=== PATIENT | female | born 1960 | race Caucasian/White ===

== ENCOUNTER 2016-06-07 13:42 | Inpatient (IN) ==
[2016-06-07] MEDS ORDERED: 0.9 % Sodium Chloride 1,000 ML IVC ONE ×3 (13:50→17:24)
--- NOTE | 2016-06-07 13:54 | Emergency Department Note ---
Disposition Clinical Impression: Near syncope UTI (urinary tract infection) Qualifiers: Urinary tract infection type: site unspecified Hematuria presence: without hematuria Qualified Code(s): N39.0 - Urinary tract infection, site not specified Sepsis Qualifiers: Sepsis type: sepsis due to unspecified organism Qualified Code(s): A41.9 - Sepsis, unspecified organism Disposition: Admitted As Inpatient Condition: Fair Referrals: NO,PCP [Non-Partnered Physician] - Forms: ED Satisfaction Letter Time of Disposition: 18:03 Syncope HPI - General Chief Complaint: ED Dizziness Stated Complaint: Poss med reaction/ Lightheaded Time Seen by Provider: 06/07/16 13:45 Source: patient, EMS Mode of arrival: EMS Limitations: no limitations Nursing Notes Reviewed: Yes Vital Signs Reviewed: Yes - History of Present Illness HPI Narrative: 55-year-old female presents with near-syncope, patient was sitting at her chair at her desk at work, felt flushed and lightheaded and almost passed out. Her boss was at bedside and she describes lips are cyanotic, the patient describes 4 out of 10 chest pain radiating to her bilateral shoulder blades. Feeling like she was gasping for air. Patient had just received an injection for Depo- Medrol 80 mg at her primary care physician's office to her prior to this. It was unsure if this is a reaction to her steroids. Patient arrived by EMS Pt Subjective Complaint: felt faint, almost passed out Onset (ago): Just [employer] Duration: second(s) Prodromal Symptoms: none, chest pain, shortness of breath Witnessed: yes - by bystander Context: at rest Injuries Sustained Associated with Event: none Current Symptoms: none History: other (Recent steroid injection) Treatments prior to arrival: none Associated trauma secondary to event: No - Related Data Home Medications Medication Instructions Recorded Confirmed Escitalopram [Lexapro] 10 mg PO DAILY 12/17/14 06/07/16 Loratadine [Claritin] 10 mg PO DAILY 12/17/14 06/07/16 Bisoprolol/HCTZ 5/6.25 [Ziac 1 tab PO BID 06/07/16 06/07/16 5/6.25] Lovastatin [Lovastatin] 40 mg PO HS 06/07/16 06/07/16 Allergies Allergy/AdvReac Type Severity Reaction Status Date / Time Penicillins Allergy Hives Verified 12/17/14 16:17 Sulfa (Sulfonamide Allergy Hives Verified 05/30/16 10:24 Antibiotics) All systems ED: reviewed and negative except as stated. Constitutional: Denies: fever, chills, weakness Cardiovascular: Denies: chest pain, palpitations Respiratory: Denies: cough, dyspnea, wheezes Gastrointestinal: Denies: abdominal pain, nausea, vomiting Genitourinary: Denies: urgency, dysuria Musculoskeletal: Denies: back pain Neurological: Denies: headache, weakness Psychiatric: Denies: anxiety, depression Past Medical History - Past Medical History Attestation: Yes The following information was validated with the patient. 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: bilateral tubal ligation - Social History Smoking Status: Unknown if ever smoked Smokeless Tobacco Status: No Alcohol use: Reports: unknown Drug use: Reports: none Physical Exam Constitutional: alert and oriented, in NAD, vital signs reviewed and mild tachycardic Neck: normal inspection, neck is supple, trachea midline Resp: normal chest inspection, CTA bilaterally, no resp distress CV: tachycardic, no m/g/r GI: obese, normal inspection, Soft, NTND, BS present Back: normal inspection, no tenderness to palpation Neuro: A&O3, no gross motor or sensory deficits bilaterally MSK: normal inspection, bilateral UE and LE with normal ROM Psych: normal mood, normal affect Skin: No rashes, skin warm, dry, intact - General Limitations: no limitations General appearance: alert, in no apparent distress Course Course Narrative: 55-year-old female with chest pain and syncope at rest, will get troches lab work d-dimer given that she has a well score of 0, but she cannot meet per criteria because she is tachycardic, over 50, reassess, fluid bolus likely admit. - Reevaluation(s) Reevaluation #1: Pt was initially being evaluated for near syncope, concern for previous UTI ordered a urine analysis, this was added, patient and a white count however this was considered to be likely due to recent steroid use urinalysis is not markedly remarkable, however given concerns with near syncope, elevated white count and possible UTI, even though her urine culture was negative we will treat her with empiric antibiotics covering for possible UTI related infection, technically meets criteria for sepsis although we feel that near syncope is more important, we will give 30 mL per bolus, 3 L of fluid total have been ordered, a repeat lactate times, and broad-spectrum antibiotics with ceftriaxone. Sepsis consideration started after bloodwork reviewed at 15:40 as before met no SIRS criteria other than tachycardia no concern for infection prior to WBC and bandemia reviewed and equivocal urine, added Blood cutures at this time, Abx added within 3 hr window of sepsis presumed Pt also with elevated D-Dimer and Renal insufficiency GFR 35 unable to CTA will get Nuc Med V/Q and reassess. Time: 17:20 Reevaluation #2: Admitted to Medicine for UTI sepsis, very low probability for pulmonary embolism on nuclear medicine scan, patient currently stable has gotten 3 L fluid bolus, respiratory antibiotics, repeat lactate ordered, admitted to Dr Markham. Vital Signs Temperature 98.3 F 06/07/16 13:43 Pulse Rate 106 06/07/16 13:43 Respiratory Rate 18 06/07/16 13:43 Blood Pressure 89/66 06/07/16 13:43 O2 Sat by Pulse Oximetry 98 06/07/16 13:43 Temperature 98.3 F 06/07/16 13:43 Pulse Rate 103 06/07/16 17:38 Respiratory Rate 18 06/07/16 17:38 Blood Pressure 112/82 06/07/16 17:38 O2 Sat by Pulse Oximetry 97 06/07/16 17:38 Oxygen Delivery Oxygen Delivery Room Air Syncope - [facility] Narrative Medical decision making narrative: I examined this patient and my medical decision-making was reviewed with the GRIEVANCE MANAGER/PA/Advanced Practice Nurse/Resident Physician. I agree with the documented findings, disposition and treatment plan as described except to the extent set forth below. Patient presents today was seen by Dr. Winslow and myself , I agree with his evaluation and management plan, supervise care the patient's today. Patient had allergic reaction to antibiotics. She had a cystitis they started her on some steroids she was back at her office in about 2 hours after the injection she felt kind of lightheaded her boss that she looked terrible. Selected near syncopal episode. No injuries. No chest pain. Uncertain if this was allergic reaction or not. No rash no difficulty with breathing or swallowing. Benadryl workup on her reassess her. She may need admission. 1500 hrs.: Patient has elevated white count with a bandemia. She has not urinated yet, her d-dimer is elevated so were the VQ scan with her as her creatinine is elevated. Skin hydrated. And we will reassess. She is in agreement with this plan. Chest X-Ray 06/07/16 13:50 IMPRESSION: 1. No active pulmonary disease. D/ / Montrell Akers MD / Montrell Akers MD Interpreting Provider: Montrell Akers MD Pulmonary Perfusion Imaging 06/07/16 15:22 IMPRESSION: Very low probability ventilation perfusion lung scan with no evidence of pulmonary embolus. D/ / 06/07/2016 17:42:39 Celestino Mclaughlin MD / steven Interpreting Provider: Celestino Mclaughlin MD 1750 hrs. chest x-rays normal VQ scan is low probability for PE delay source of possible infection is her urine which she had had a UTI previously was started on ceftriaxone here and going to go ahead and admit her. She is in agreement impression is UTI, near syncope, rule out sepsis. Patient's agreement with plan. Patient's critical care time explained separately billable procedures 35 minutes. - Differential Diagnosis Likely: syncope due to orthostatic hypotension, vasovagal syncope, complete atrioventricular block, pulmonary embolism - Medical Records Medical records reviewed: Yes I reviewed the patient's medical records. - Lab Data Lab results reviewed: Yes I reviewed the patient's lab results. Result diagrams: 06/07/16 14:38 06/07/16 14:38 Lab Results 06/07/16 06/07/16 06/07/16 Range/Units 13:49 14:38 14:38 WBC 16.2 H (4.3-11.1) K/mcL RBC 4.35 (3.82-4.97) M/mcL Hgb 12.6 (11.5-15.4) g/dL Hct 40.2 (35.3-44.9) % MCV 92.4 (83.0-100.0) fL MCH 29.0 (28.0-33.3) pg MCHC 31.3 L (31.6-35.5) g/dL RDW 14.0 (11.5-14.5) % Plt Count 428 H (140-400) K/mcL MPV 8.6 L (9.4-12.4) fL Seg Neutrophils % 77.0 % Band Neutrophils % 11.0 H (0-4) % Lymphocytes % 10.0 % Monocytes % 1.0 % Eosinophils % 1.0 % Neutrophils # 14.3 H (1.6-8.9) K/mcL Lymphocytes # 1.6 (0.6-4.6) K/mcL Monocytes # 0.2 (0.0-1.3) K/mcL Eosinophils # 0.2 (0.0-0.6) K/mcL Platelet Estimate Normal (Normal) Immature Plt Fraction 1.7 (1.1-6.1) % D-Dimer (0-500) ng/mLFEU Sodium 139 (136-145) mEq/L Potassium 3.4 L (3.5-4.5) mEq/L Chloride 104 (98-109) mEq/L Carbon Dioxide 26 (19-29) mEq/L BUN 22 H (7-20) mg/dL Creatinine 1.54 H (0.57-1.11) mg/dL Est GFR ( Amer) 43 L (> 60) Est GFR (Non-Af Amer) 35 L (> 60) BUN/Creatinine Ratio 14 (6-26) Glucose 147 H (70-99) mg/dL POC Glucose 104 H (58-89) Calculated Osmolality 294 (280-300) Lactic Acid (0.5-2.2) mmol/L Calcium 7.8 L (8.6-10.8) mg/dL Troponin I (0-0.03) ng/mL Urine Color (Yellow) Urine Clarity (Clear) Urine pH (5.0-8.0) pH Units Ur Specific [place] (1.010-1.025) Urine Protein (Neg-Trace) mg/dL Urine Glucose (UA) (Normal) mg/dL Urine Ketones (Negative) mg/dL Urine Blood (Negative) Urine Nitrite (Negative) Urine Bilirubin (Negative) Urine Urobilinogen (Normal) mg/dL Ur Leukocyte Esterase (Negative) Urine Microscopic RBC (0-3) per hpf Urine Microscopic WBC (0-3) per hpf Ur Squamous Epith Cells (None-Few) per lpf Ur Renal Epithelial Cell (None-Few) per hpf Urine Bacteria (None-Few) per hpf Hyaline Casts (None-Few) per lpf Urine Mucus (Few) Ur Culture Indicated? (NO) 06/07/16 06/07/16 06/07/16 Range/Units 14:38 14:38 15:39 WBC (4.3-11.1) K/mcL RBC (3.82-4.97) M/mcL Hgb (11.5-15.4) g/dL Hct (35.3-44.9) % MCV (83.0-100.0) fL MCH (28.0-33.3) pg MCHC (31.6-35.5) g/dL RDW (11.5-14.5) % Plt Count (140-400) K/mcL MPV (9.4-12.4) fL Seg Neutrophils % % Band Neutrophils % (0-4) % Lymphocytes % % Monocytes % % Eosinophils % % Neutrophils # (1.6-8.9) K/mcL Lymphocytes # (0.6-4.6) K/mcL Monocytes # (0.0-1.3) K/mcL Eosinophils # (0.0-0.6) K/mcL Platelet Estimate (Normal) Immature Plt Fraction (1.1-6.1) % D-Dimer 2022 H (0-500) ng/mLFEU Sodium (136-145) mEq/L Potassium (3.5-4.5) mEq/L Chloride (98-109) mEq/L Carbon Dioxide (19-29) mEq/L BUN (7-20) mg/dL Creatinine (0.57-1.11) mg/dL Est GFR ( Amer) (> 60) Est GFR (Non-Af Amer) (> 60) BUN/Creatinine Ratio (6-26) Glucose (70-99) mg/dL POC Glucose (58-89) Calculated Osmolality (280-300) Lactic Acid 2.7 H (0.5-2.2) mmol/L Calcium (8.6-10.8) mg/dL Troponin I 0.02 (0-0.03) ng/mL Urine Color (Yellow) Urine Clarity (Clear) Urine pH (5.0-8.0) pH Units Ur Specific [place] (1.010-1.025) Urine Protein (Neg-Trace) mg/dL Urine Glucose (UA) (Normal) mg/dL Urine Ketones (Negative) mg/dL Urine Blood (Negative) Urine Nitrite (Negative) Urine Bilirubin (Negative) Urine Urobilinogen (Normal) mg/dL Ur Leukocyte Esterase (Negative) Urine Microscopic RBC (0-3) per hpf Urine Microscopic WBC (0-3) per hpf Ur Squamous Epith Cells (None-Few) per lpf Ur Renal Epithelial Cell (None-Few) per hpf Urine Bacteria (None-Few) per hpf Hyaline Casts (None-Few) per lpf Urine Mucus (Few) Ur Culture Indicated? (NO) 06/07/16 Range/Units 15:50 WBC (4.3-11.1) K/mcL RBC (3.82-4.97) M/mcL Hgb (11.5-15.4) g/dL Hct (35.3-44.9) % MCV (83.0-100.0) fL MCH (28.0-33.3) pg MCHC (31.6-35.5) g/dL RDW (11.5-14.5) % Plt Count (140-400) K/mcL MPV (9.4-12.4) fL Seg Neutrophils % % Band Neutrophils % (0-4) % Lymphocytes % % Monocytes % % Eosinophils % % Neutrophils # (1.6-8.9) K/mcL Lymphocytes # (0.6-4.6) K/mcL Monocytes # (0.0-1.3) K/mcL Eosinophils # (0.0-0.6) K/mcL Platelet Estimate (Normal) Immature Plt Fraction (1.1-6.1) % D-Dimer (0-500) ng/mLFEU Sodium (136-145) mEq/L Potassium (3.5-4.5) mEq/L Chloride (98-109) mEq/L Carbon Dioxide (19-29) mEq/L BUN (7-20) mg/dL Creatinine (0.57-1.11) mg/dL Est GFR ( Amer) (> 60) Est GFR (Non-Af Amer) (> 60) BUN/Creatinine Ratio (6-26) Glucose (70-99) mg/dL POC Glucose (58-89) Calculated Osmolality (280-300) Lactic Acid (0.5-2.2) mmol/L Calcium (8.6-10.8) mg/dL Troponin I (0-0.03) ng/mL Urine Color Yellow (Yellow) Urine Clarity Cloudy A (Clear) Urine pH 6.0 (5.0-8.0) pH Units Ur Specific [place] 1.017 (1.010-1.025) Urine Protein 30 H (Neg-Trace) mg/dL Urine Glucose (UA) Normal (Normal) mg/dL Urine Ketones Negative (Negative) mg/dL Urine Blood Negative (Negative) Urine Nitrite Negative (Negative) Urine Bilirubin Negative (Negative) Urine Urobilinogen Normal (Normal) mg/dL Ur Leukocyte Esterase Moderate H (Negative) Urine Microscopic RBC 3-5 H (0-3) per hpf Urine Microscopic WBC 5-15 H (0-3) per hpf Ur Squamous Epith Cells Many H (None-Few) per lpf Ur Renal Epithelial Cell Few (None-Few) per hpf Urine Bacteria None Seen (None-Few) per hpf Hyaline Casts Few (None-Few) per lpf Urine Mucus Few (Few) Ur Culture Indicated? YES A (NO) - Radiology Data Radiology results reviewed: Yes I reviewed the patient's radiology results. Chest X-Ray 06/07/16 13:50 IMPRESSION: 1. No active pulmonary disease. D/ / Montrell Akers MD / Montrell Akers MD Interpreting Provider: Montrell Akers MD - EKG Data EKG attestation: Yes I reviewed and interpreted this EKG. EKG shows normal: sinus rhythm Rate: tachycardia (10 6 bpm AR 151 0 75 QTC 411 Q wave in lead 3, inferior T wave in lead 3.) When compared to previous EKG there are: previous EKG unavailable - Core Measures AMI Core Measures Followed: No
[2016-06-07 14:46] LABS: Hematocrit 40.2 % (35.3-44.9); Hemoglobin 12.6 g/dL (11.5-15.4); Immature Platelets 1.7 % (1.1-6.1); Mean Corpuscular HGB Conc 31.3 g/dL (31.6-35.5); Mean Corpuscular Volume 92.4 fL (83.0-100.0); Mean Platelet Volume 8.6 fL (9.4-12.4); Monocytes # 0.2 K/mcL (0.0-1.3); Platelet Count 428 K/mcL (140-400); Red Blood Count 4.35 M/mcL (3.82-4.97)
[2016-06-07 15:02] LABS: Calcium 7.8 mg/dL (8.6-10.8); Potassium 3.4 mEq/L (3.5-4.5)
[2016-06-07 15:17] LABS: Eosinophils # 0.2 K/mcL (0.0-0.6); Lymphocytes # 1.6 K/mcL (0.6-4.6); Neutrophils # 14.3 K/mcL (1.6-8.9); Platelet Estimate Normal (Normal)
[2016-06-07 16:09] LABS: Bilirubin,Urine Negative (Negative); Blood,Urine Negative (Negative); Clarity,Urine Cloudy (Clear); Color,Urine Yellow (Yellow); Glucose,Urine (UA) Normal (Normal); Ketones,Urine Negative (Negative); Leukocyte Esterase,Urine Moderate (Negative); Nitrite,Urine Negative (Negative); Protein,Urine 30 mg/dL (Neg-Trace); Specific Gravity,Urine 1.017 (1.010-1.025); Urobilinogen,Urine Normal (Normal)
[2016-06-07 16:12] LABS: Bacteria,Urine None Seen per hpf (None-Few); Squamous Epithelial Cell,Urine Many per lpf (None-Few)
[2016-06-07 16:21] LABS: Hyaline Casts,Urine Few per lpf (None-Few); Mucus,Urine Few (Few); Renal Epithelial Cells,Urine Few per hpf (None-Few)
[2016-06-07] MEDS ORDERED: CefTRIAXone 1,000 MG VIAL IM ONE (17:20)
[2016-06-07] MEDS ORDERED: Naloxone 0.4 MG/ML INJ IVP PRN (23:55)
--- NOTE | 2016-06-07 23:55 | Internal Med History&Physical ---
Date of Encounter: 06/07/16 Time of Encounter: 23:55 Assessment and Plan (1) Sepsis Current visit: Yes Status: Acute Possibly secondary to urinary tract infection. Recently partially treated with Bactrim. Urinalysis is abnormal and urine cultures pending. Empirically treat with ceftriaxone. Lactate was elevated; pt had hypotension, which improved IV fluid bolus. Qualifiers: Sepsis type: sepsis due to unspecified organism Qualified Code(s): A41.9 - Sepsis, unspecified organism (2) UTI (urinary tract infection) Current visit: Yes Status: Acute Recently partially treated with the Bactrim. Bactrim was discontinued due to allergy. Urinalysis is abnormal and urine cultures pending. Emperically treat with ceftriaxone. Qualifiers: Urinary tract infection type: site unspecified Hematuria presence: without hematuria Qualified Code(s): N39.0 - Urinary tract infection, site not specified (3) Hypotension Current visit: Yes Status: Acute Likely due to sepsis. Improved.intravenous fluids. Monitor BP Qualifiers: Hypotension type: unspecified hypotension type Qualified Code(s): I95.9 - Hypotension, unspecified (4) Near syncope Current visit: Yes Status: Acute Likely secondary to sepsis/hypotension. Will check orthostatic vitals (5) Leucocytosis Current visit: Yes Status: Acute Likely secondary to UTI Versus recent systemic steroids. Monitor WBC count Qualifiers: Leukocytosis type: bandemia Qualified Code(s): D72.825 - Bandemia (6) Acute kidney injury Current visit: Yes Status: Acute Secondary to volume depletion/hypotension. Treated with IV fluids. Monitor renal function (7) Elevated d-dimer Current visit: Yes Status: Acute VQ scan is reported to be low probability for pulmonary embolism. Will get lower extremity venous doppler to exclude DVT (pt had recent hip replacement). Elevated d-dimer could be secondary to sepsis Internal Medicine - H&P: HPI Chief complaint: Low BP; presyncope Admitted From: Emergency Dept Plans for Post Hospital Care: Home History of present illness: Ms. Martin is a 55 year old female With Past medical history significant for hypertension, hyperlipidemia and right hip replacement in March 2016. She apparently had urinary symptoms over a week ago - she was started on Bactrim in urgent care. She apparently developed rash, suspected to be allergic reaction to Bactrim. She was treated with oral and parenteral steroids. She did not complete the course of antibiotics. She had been done at doctors office and was given Depo-Medrol 80 mg at her primary care physician's office. A short while after that, while she was in her office, she apparently felt dizzy, lightheaded, swimmy and felt like she was going to pass out. She reported some chest pressure and had low blood pressure. She denies shortness of breath, cough, fever, chills, abdominal pain, bowel problems. Per the note from [facility] department her blood pressure was 74/48 and 60/P. she was evaluated in the emergency department. She was noted to have blood pressure of 89/66 with pulse of 106 at presentation. She had abnormal urinalysis with positive leukocyte esterase. She had leukocytosis with bandemia. She was given intravenous fluid bolus and ceftriaxone. D-dimer was elevated but the VQ scan is negative. She is admitted to the hospitalist service for further management. Past Med Surg Social Fam HX - Past Medical History Medical history: hyperlipidemia, hypertension Psychiatric history: anxiety, depression - Past Surgical History Surgical History: cholecystectomy, hip replacement - Social History Smoking Status: Former smoker Smokeless Tobacco Status: No Alcohol use: none Drug use: none - Family History Father History Unknown: Yes Adopted: [place]: Lebron Cowan Age: 78 Family Member Ethnicity: Non- Living Status: Still Living Hx Family Cardiac Disorders: No Hx Family Respiratory Disorders: Yes (COPD) Hx Family Cancer: No Hx Family GI Disorders: No Hx Family Genitourinary Disorders: No Hx Family Endocrine Disorder: No Hx Family Musculoskeletal Disorders: No Hx Family Neuromuscular Disorders: No Hx Family Neurologic Disorders: No Hx Family HEENT Disorders: No Hx Family Autoimmune Disorders: No Hx Family Reproductive Disorders: No Hx Family Psychosocial Disorders: No Hx Family Medical Disorders: No Mother History Unknown: Yes Adopted: [place]: Yamilka Cowan Age: 72 Family Member Ethnicity: Non- Living Status: Still Living Hx Family Cardiac Disorders: No Hx Family Respiratory Disorders: No Hx Family Cancer: No Hx Family GI Disorders: Yes (GI bleed) Hx Family Genitourinary Disorders: No Hx Family Endocrine Disorder: No Hx Family Musculoskeletal Disorders: No Hx Family Neuromuscular Disorders: No Hx Family Neurologic Disorders: No Hx Family HEENT Disorders: No Hx Family Autoimmune Disorders: Yes (DM 2) Hx Family Reproductive Disorders: No Hx Family Psychosocial Disorders: No Hx Family Medical Disorders: Yes (CVA, Kidney disease) Internal Medicine - H&P: Meds Escitalopram [Lexapro] 10 mg PO DAILY 12/17/14 [History] Loratadine [Claritin] 10 mg PO DAILY 12/17/14 [History] Bisoprolol/HCTZ 5/6.25 [Ziac 5/6.25] 1 tab PO BID 06/07/16 [History] Lovastatin [Lovastatin] 40 mg PO HS 06/07/16 [History] Allergies Penicillins Allergy (Verified 12/17/14 16:17) Hives Sulfa (Sulfonamide Antibiotics) Allergy (Verified 05/30/16 10:24) Hives All Systems PM: A 10-system review of systems was performed and is negative for pertinent findings except as documented above in the HPI. - Constitutional Vitals: Temp Pulse Resp BP Pulse Ox 98.2 F 95 16 100/66 95 06/07/16 19:47 06/07/16 19:47 06/07/16 19:47 06/07/16 19:47 06/07/16 19:47 Exam: General: Not in acute distress at the time of my evaluation HEENT: Oral mucosa is moist. No conjunctival palor or scleral icterus Neck: No obvious neck swellings Lungs: Clear to auscultation Cardiac: Regular rate and rhythm. No significant murmurs Abdomen: Soft, non tender. Bowel sounds present Genitourinary: No love catheter Neurological: Alert and oriented. No gross localizing deficits Psych: Not aggressive or agitated Extremities: no significant leg edema Skin: No generalized rash Internal Med - H&P Results - Labs CBC & Chem 7: 06/07/16 14:38 06/07/16 14:38 - EKG Data -: EKG Interpreted by Myself EKG shows normal: sinus rhythm Rate: tachycardia - Impressions ITS Impressions Chest X-Ray 06/07/16 13:50 IMPRESSION: 1. No active pulmonary disease. D/ / Montrell Akers MD / Montrell Akers MD Interpreting Provider: Montrell Akers MD Pulmonary Perfusion Imaging 06/07/16 15:22 IMPRESSION: Very low probability ventilation perfusion lung scan with no evidence of pulmonary embolus. D/ / 06/07/2016 17:42:39 Celestino Mclaughlin MD / steven Interpreting Provider: Celestino Mclaughlin MD
[2016-06-08] MEDS: 0.9 % Sodium Chloride 1,000 ML IVC SCH ×2 (00:33→11:45)
[2016-06-08 04:24] LABS: Basophils # 0.1 K/mcL (0.0-0.2); Basophils % 0.5 %; Eosinophils # 0.3 K/mcL (0.0-0.6); Eosinophils % 2.2 %; Hematocrit 35.5 % (35.3-44.9); Hemoglobin 11.2 g/dL (11.5-15.4); Immature Granulocytes % 5.4 % (0-4); Lymphocytes # 2.3 K/mcL (0.6-4.6); Lymphocytes % 18.1 %; Mean Corpuscular HGB Conc 31.5 g/dL (31.6-35.5); Mean Corpuscular Hemoglobin 28.4 pg (28.0-33.3); Mean Corpuscular Volume 89.9 fL (83.0-100.0); Mean Platelet Volume 8.6 fL (9.4-12.4); Monocytes # 0.6 K/mcL (0.0-1.3); Monocytes % 4.9 %; Neutrophils # 8.6 K/mcL (1.6-8.9); Platelet Count 277 K/mcL (140-400); Red Blood Count 3.95 M/mcL (3.82-4.97); Red Cell Distribution Width 14.4 % (11.5-14.5); Segmented Neutrophils % 68.9 %
[2016-06-08 04:55] LABS: Hemoglobin A1C 5.5 %
[2016-06-08 04:57] LABS: Calcium 7.2 mg/dL (8.6-10.8); Chol/HDL Ratio 5.6 (0-4.9); Potassium 3.2 mEq/L (3.5-4.5)
[2016-06-08 05:21] LABS: Platelet Estimate Normal (Normal)
[2016-06-08] MEDS: *HR* Heparin 5,000 UNIT/ML VIAL SQ SCH ×3 (05:36→20:56)
[2016-06-08] MEDS ORDERED: Magnesium Sulfate 4 GM in D5% in Water 100 ML IVPB ONE (06:44)
[2016-06-08] MEDS: Loratadine 10 MG TABLET PO SCH (08:06)
[2016-06-08] MEDS ORDERED: *HR* Promethazine 25 MG/ML VIAL IVP PRN (08:33)
[2016-06-08] MEDS ORDERED: *HR* Morphine 2 MG/ML SYRINGE IVP PRN (08:33)
[2016-06-08] MEDS ORDERED: Ondansetron 4 MG/2 ML VIAL IVP PRN (08:33)
[2016-06-08] MEDS ORDERED: Acetaminophen 325 MG TABLET PO PRN (08:33)
[2016-06-08] MEDS: *HR* HYDROcodone/Acet 5/325 mg TABLET PO PRN ×2 (14:28→21:30)
--- NOTE | 2016-06-08 17:21 | Electrocardiograph Report ---
[address] [place], [place] [address] Test Date: 2016-06-07 Pat Name: Usha Martin Department: 104 Room: 3B Gender: F Certified Nuclear Medicine Technologist: ADRIANNE : 1960 Requested By: Davin Winslow Order Number: [id number] Reading MD: Abe Sloan MD Measurements Intervals [place] Rate: 106 P: 27 VA: 151 QRS: 32 QRSD: 75 T: 19 QT: 349 QTc: 411 Interpretive Statements SINUS TACHYCARDIA Electronically Signed On 06-08-2016 17:19:39 EDT by Abe Sloan MD
--- NOTE | 2016-06-08 18:27 | Internal Med Progress Note ---
Date of Encounter: 06/08/16 Time of Encounter: 14:00 - Assessment and plan (1) Hypertension Current Visit: Yes Status: Chronic Assessment and plan: Hypotension resolved and then the patient became hypertensive and her home medication bisoprolol has been held given that his combined with HCTZ. We will start her on metoprolol and monitor. Qualifiers: Hypertension type: essential hypertension Qualified Code(s): I10 - Essential (primary) hypertension (2) Near syncope Current Visit: Yes Status: Resolved Assessment and plan: Patient is now asymptomatic and ambulatory about her room without lightheadedness or dizziness. Likely secondary to sepsis that is resolving. Possible discharge tomorrow pending clinical outcomes. (3) UTI (urinary tract infection) Current Visit: Yes Status: Acute Assessment and plan: Continue ceftriaxone, culture pending. Prior to admission, patient likely had an allergic reaction to Bactrim, will avoid. Qualifiers: Urinary tract infection type: site unspecified Hematuria presence: without hematuria Qualified Code(s): N39.0 - Urinary tract infection, site not specified (4) Sepsis Current Visit: Yes Status: Resolved Assessment and plan: Sepsis is resolving. Leukocytosis trending down. Patient no longer hypotensive. Heart rate stable and slightly tachycardic at times however the patient has agitated because she wants to go home. Lactic acid normal. Qualifiers: Sepsis type: sepsis due to unspecified organism Qualified Code(s): A41.9 - Sepsis, unspecified organism (5) Hypotension Current Visit: Yes Status: Resolved Qualifiers: Hypotension type: unspecified hypotension type Qualified Code(s): I95.9 - Hypotension, unspecified (6) Leucocytosis Current Visit: Yes Status: Acute Assessment and plan: Trending down, continue ceftriaxone. Qualifiers: Leukocytosis type: bandemia Qualified Code(s): D72.825 - Bandemia (7) Acute kidney injury Current Visit: Yes Status: Acute Assessment and plan: Improving, we will continue to trend. Continue IV fluids. (8) Elevated d-dimer Current Visit: Yes Status: Ruled-out Assessment and plan: VQ scan negative for PE. Lower extremity Doppler negative for DVT ITS Impressions Pulmonary Perfusion Imaging 06/07/16 15:22 IMPRESSION: Very low probability ventilation perfusion lung scan with no evidence of pulmonary embolus. D/ /07/2016 17:42:39 Celestino Mclaughlin MD / bcarter Interpreting Provider: Celestino Mclaughlin MD 06/08/16 14:10 - Vascular Preliminary by Bravo Fields [facility] Num: [id number] : 1960 Patient Age: 55 Preliminary report for bilateral lower extremity venous duplex is negative for DVT and SVT. (9) Hypokalemia Current Visit: Yes Status: Acute Assessment and plan: Repleting, will trend. Also hypomagnesemic (10) Hypomagnesemia Current Visit: Yes Status: Acute Assessment and plan: Repleting, will check in the morning - Subjective Interval history: Patient seen and examined. On examination, patient is sitting upright in bed. Patient alert and oriented 3 and currently denies pain or shortness of breath. She denies dysuria. She states she is feeling much better and wants to go home. - Constitutional Vitals: Temp Pulse Resp BP Pulse Ox 98.0 F 104 16 148/83 95 06/08/16 15:06 06/08/16 15:06 06/08/16 15:06 06/08/16 15:06 06/08/16 15:06 General appearance: Present: A&O X 3, pleasant, no acute distress, answers questions appropriately - Head Head exam: Present: atraumatic, normocephalic - Eye Eye exam: Present: PERRL, conjuntiva pink, sclera anicteric Pupils: Present: PERRL - Neck Neck exam general surgery: Present: supple, trachea midline. Absent: lymphadenopathy - Respiratory Respiratory exam: Present: CTAB. Absent: accessory muscle use, rales, respiratory distress, rhonchi, wheezes - Cardiovascular Cardiovascular exam: Present: RRR, +S1, +S2. Absent: diastolic murmur, gallop, rubs, systolic murmur - GI/Abdominal GI/Abdominal exam: Present: normal bowel sounds, soft, no peritoneal signs. Absent: distended, tenderness - Extremities Exam Extremities exam: Present: warm, radial pulses palpable and symetrical. Absent : calf tenderness, cyanotic, pedal edema - Expanded Lower Extremities Exam Hip exam: Present: tenderness (Status post hip replacement 9 weeks ago) Neuro vascular tendon exam: Present: no vascular compromise - Neurological Exam Neurological exam: Present: alert, CN II-XII intact, oriented X3, no focal deficits, strengths equal and symetr throughout. Absent: pronater drift, facial droop, speech deficit - Skin Skin exam: Present: dry, intact, normal color, warm Internal Medicine: Result - Labs CBC & Chem 7: 06/08/16 03:48 06/08/16 03:48 Labs: Short CBC 06/08/16 Range/Units 03:48 WBC 12.5 H (4.3-11.1) K/mcL Hgb 11.2 L (11.5-15.4) g/dL Hct 35.5 (35.3-44.9) % Plt Count 277 (140-400) K/mcL Neutrophils # 8.6 (1.6-8.9) K/mcL BMP 06/08/16 03:48 Sodium 139 Potassium 3.2 L Chloride 108 Carbon Dioxide 23 BUN 19 Creatinine 1.17 H Glucose 92 Calcium 7.2 L Cardiac Enzymes 06/08/16 Range/Units 03:48 Troponin I 0.02 (0-0.03) ng/mL - ABG Interpretation ABG results: PT/INR, D-dimer D-Dimer 2023 ng/mLFEU (0-500) H 06/07/16 14:38 Consult Discharge Plan - Plan Referrals: Tone Gomez DO [Primary Care Provider] -
[2016-06-08] MEDS: Lactobacillus 1 EACH CAP.SPRINK PO SCH (20:56)
[2016-06-09] MEDS: 0.9 % Sodium Chloride 1,000 ML IVC SCH ×2 (00:26→05:07)
[2016-06-09 03:52] LABS: Basophils % 0.5 %; Eosinophils # 0.3 K/mcL (0.0-0.6); Eosinophils % 3.2 %; Hemoglobin 11.5 g/dL (11.5-15.4); Lymphocytes # 2.4 K/mcL (0.6-4.6); Lymphocytes % 30.4 %; Mean Corpuscular HGB Conc 31.9 g/dL (31.6-35.5); Mean Corpuscular Hemoglobin 29.1 pg (28.0-33.3); Mean Corpuscular Volume 91.1 fL (83.0-100.0); Monocytes # 0.5 K/mcL (0.0-1.3); Neutrophils # 4.3 K/mcL (1.6-8.9); Platelet Count 208 K/mcL (140-400); Red Blood Count 3.95 M/mcL (3.82-4.97); Red Cell Distribution Width 14.5 % (11.5-14.5); Segmented Neutrophils % 54.9 %
[2016-06-09 04:15] LABS: BUN/Creatinine Ratio 15 (6-26); Blood Urea Nitrogen 13 mg/dL (7-20); Carbon Dioxide 24 mEq/L (19-29); Chloride 111 mEq/L (98-109); Glucose 101 mg/dL (70-99); Magnesium 1.7 mg/dL (1.6-2.6); Osmolality,Calculated 294 (280-300); Sodium 142 mEq/L (136-145); eGFR For African Americans > 60 (> 60); eGFR For Non-African Americans > 60 (> 60)
[2016-06-09 04:24] LABS: Calcium 8.3 mg/dL (8.6-10.8)
[2016-06-09] MEDS: *HR* Heparin 5,000 UNIT/ML VIAL SQ SCH (04:57)
--- NOTE | 2016-06-09 07:01 | Venous Imaging Report ---
LE Venous Duplex Patient Name:Usha Martin Order Number:[id number] Procedure Date:06/08/2016 Date:1960Age:55 yrs Gender:Female Location:[facility] Room #: 3B34 Special Education Resource Teacher:Bravo Fields RN Referring MD:Gayla Patrick MD board certified behavioral analyst:Tone Gomez DO Reading MD:David Barker MD Primary Indications:Elevated D-Dimer Secondary Indications: Risk Factors Yes/No Smoking Current No Anticoagulants No Previous Vascular Surgery No Hx of DVT No Hx of Chemotherapy No Trauma to Veins No Recent Surgery No Hx of Superficial Phlebitis No [place] Filter No Impressions: Normal bilateral lower extremity deep and superficial venous exam. Recommendations: Test completed on 06/08/2016 at 1:00:00 pm. Findings Venous Duplex Results: Right: Venous imaging of the lower extremity reveals full patency and normal vessel compressibility of the right distal iliac, right common femoral, right superficial femoral, right popliteal, right posterior tibial, right peroneal, right great saphenous and right lesser saphenous. Doppler signals in the evaluated veins were normal. Left: Venous imaging of the lower extremity reveals full patency and normal vessel compressibility of the left distal iliac, left common femoral, left superficial femoral, left popliteal, left posterior tibial, left peroneal, left great saphenous and left lesser saphenous. Doppler signals in the evaluated veins were normal. Prior Study: No prior study available for comparison. Lower Extremity Venous Duplex Side Vein Compress Spontaneous Flow Augment Diameter (cm) Depth (cm) Right Distal Iliac Normal Yes Phasic Yes Right Common Femoral Normal Yes Phasic Yes Right Superficial Femoral Normal Yes Phasic Yes Right Popliteal Normal Yes Phasic Yes Right Posterior Tibial Normal Yes Phasic Yes Right Peroneal Normal Yes Phasic Yes Right Great Saphenous Normal Yes Phasic Yes Right Lesser Saphenous Normal Yes Phasic Yes Left Distal Iliac Normal Yes Phasic Yes Left Common Femoral Normal Yes Phasic Yes Left Superficial Femoral Normal Yes Phasic Yes Left Popliteal Normal Yes Phasic Yes Left Posterior Tibial Normal Yes Phasic Yes Left Peroneal Normal Yes Phasic Yes Left Great Saphenous Normal Yes Phasic Yes Left Lesser Saphenous Normal Yes Phasic Yes Updated by David Barker MD on 06/09/2016 6:55:06 AM electronically signed on 06/09/2016 6:55:26 AM with status of Final
[2016-06-09] MEDS: Loratadine 10 MG TABLET PO SCH (09:39)
[2016-06-09] MEDS: Lactobacillus 1 EACH CAP.SPRINK PO SCH (09:39)
[2016-06-09 11:10] VITALS: BP 156/97
--- NOTE | 2016-06-09 11:19 | Discharge Summary ---
Date of Encounter: 06/09/16 Time of Encounter: 10:00 - Discharge Diagnosis (1) Hypertension Priority: Secondary Status: Chronic Comments: Hypotension resolved and then the patient became hypertensive and her home medication of bisoprolol was not an option, so she was given metoprolol while admitted- borderline hypertensive at time of discharge- will have her resume her home medications and have her followup outpatient. (2) Near syncope Priority: Primary Status: Resolved Comments: Patient aimed asymptomatic and ambulatory about her room without lightheadedness or dizziness throughout this admission. Was likely secondary to sepsis that resolved. (3) UTI (urinary tract infection) Priority: Primary Status: Acute Comments: Patient improved clinically and her sepsis resolved while on ceftriaxone. Urine culture was grossly mixed and unable to be interpreted to she will be sent home on Cefdinir. Bactrim added to her allergy list. Qualifiers: Urinary tract infection type: site unspecified Hematuria presence: without hematuria Qualified Code(s): N39.0 - Urinary tract infection, site not specified (4) Sepsis Priority: Primary Status: Resolved Qualifiers: Sepsis type: sepsis due to unspecified organism Qualified Code(s): A41.9 - Sepsis, unspecified organism (5) Hypotension Priority: Primary Status: Resolved Qualifiers: Hypotension type: unspecified hypotension type Qualified Code(s): I95.9 - Hypotension, unspecified (6) Leucocytosis Priority: Primary Status: Resolved (7) Acute kidney injury Priority: Primary Status: Resolved (8) Elevated d-dimer Priority: Primary Status: Ruled-out Comments: VQ scan negative for PE. Lower extremity Doppler negative for DVT ITS Impressions Pulmonary Perfusion Imaging 06/07/16 15:22 IMPRESSION: Very low probability ventilation perfusion lung scan with no evidence of pulmonary embolus. D/ / 06/07/2016 17:42:39 Celestino Mclaughlin MD / [email or web address] Interpreting Provider: Celestino Mclaughlin MD 06/08/16 14:10 - Vascular Preliminary by Bravo Fields [employer] Num: [id number] : 1960 Patient Age: 55 Preliminary report for bilateral lower extremity venous duplex is negative for DVT and SVT. (9) Hypokalemia Priority: Primary Status: Resolved (10) Hypomagnesemia Priority: Primary Status: Resolved - Discharge Medications Prescriptions: HYDROcodone/Acet 5/325 mg [[place] 5-325 mg] 1 tab PO Q6HR PRN #12 tablet PRN Reason: Pain Cefdinir [Omnicef] 300 mg PO BID #14 capsule Home Medications: Escitalopram [Lexapro] 10 mg PO DAILY 12/17/14 [History] Loratadine [Claritin] 10 mg PO DAILY 12/17/14 [History] Bisoprolol/HCTZ 5/6.25 [Ziac 5/6.25] 1 tab PO BID 06/07/16 [History] Lovastatin 40 mg PO HS 06/07/16 [History] Cefdinir [Omnicef] 300 mg PO BID #14 capsule 06/09/16 [Rx] HYDROcodone/Acet 5/325 mg [[place] 5-325 mg] 1 tab PO Q6HR PRN #12 tablet [Rx] Allergies/Adverse Reactions: Allergies Penicillins Allergy (Verified 12/17/14 16:17) Hives Sulfa (Sulfonamide Antibiotics) Allergy (Verified 05/30/16 10:24) Hives Procedures/tests Complete & Pending: Procedures Performed prior 72 hours Category Date Time Status Venous Doppler [EV venous imaging LE BI] Routine Y 06/08/16 00:26 Completed Date of admission: 06/07/16 23:55 Primary care physician: Tone Gomez DO Discharging clinician: Leonor Coombs Anticipated date of discharge: 06/09/16 - Patient Status Disposition: Home, Self-Care Condition: Good Functional capacity at discharge: independent ambulation Overall status at discharge: patient is back to baseline - Discharge Instructions Follow Up With: Tone Gomez DO [Primary Care Provider] - 06/15/16 2:15 pm Additional Instructions: Follow-up with primary care provider as scheduled - Diet and Activity Activity: increase activity as tolerated Diet: low fat, low cholesterol, low salt diet Hospital course: Ms. Martin is a 55 year old female with past medical history of hypertension, hyperlipidemia, right hip replacement in March of this year, status post cholecystectomy, former tobacco abuse. Patient presented to the emergency department chief complaint low blood pressure and presyncopal episode. On the week prior to presentation, patient had urinary symptoms and was started on Bactrim after visiting in urgent care. After 3 doses, she developed a rash and was taken off that medication for suspected allergic reaction. No further antibiotics were given. She was seen in her doctor's office who gave her a injection of steroids and shortly after the injection, patient felt dizzy, lightheaded and felt like she was going to pass out. No syncope. Patient also endorsed chest pressure and low blood pressure. Patient denies shortness of breath, cough, fever, chills, abdominal pain. EMS was dispatched and patient was hypotensive and brought to the emergency department. Initially upon presentation, patient was septic with leukocytosis, hypotension. Her d-dimer was in excess of 2000 she had a VQ scan that was negative for PE. Her urinalysis was abnormal and she was started on ceftriaxone and admitted to the hospitalist service for further evaluation and management. Patient remained alert and oriented 3 throughout this admission. Her hypotension quickly resolved as did her leukocytosis. She also had hypokalemia and hypomagnesemia that were also resolved. Her acute kidney injury also resolved with IV fluids. Lactic acid was normal. Urine culture ended up being mixed and unable to be interpreted however because she improved on ceftriaxone, she was sent home on Cefdinir. She was ambulatory about her room in the unit without lightheadedness or dizziness. She was discharged home in stable condition with close outpatient follow-up recommended. ITS Impressions Chest X-Ray 06/07/16 13:50 IMPRESSION: 1. No active pulmonary disease. D/ / Montrell Akers MD / Montrell Akers MD Interpreting Provider: Montrell Akers MD Pulmonary Perfusion Imaging 06/07/16 15:22 IMPRESSION: Very low probability ventilation perfusion lung scan with no evidence of pulmonary embolus. D/ / 06/07/2016 17:42:39 Celestino Mclaughlin MD / steven Interpreting Provider: Celestino Mclaughlin MD 06/08/16 14:10 - Vascular Preliminary by Bravo Fields [facility] Num: [id number] : 1960 Patient Age: 55 Preliminary report for bilateral lower extremity venous duplex is negative for DVT and SVT. - Time Spent with Patient Total time spent providing and/or coordinating discharge services: - Constitutional Vitals: Temp Pulse Resp BP Pulse Ox 97.8 F 83 16 156/97 96 06/09/16 11:09 06/09/16 11:09 06/09/16 11:09 06/09/16 11:09 06/09/16 11:09 General appearance: Present: A&O X 3, pleasant, no acute distress, answers questions appropriately - Head Head exam: Present: atraumatic, normocephalic - Eye Eye exam: Present: PERRL, conjuntiva pink, sclera anicteric Pupils: Present: PERRL - Neck Neck exam general surgery: Present: supple, trachea midline. Absent: lymphadenopathy - Respiratory Respiratory exam: Present: CTAB. Absent: accessory muscle use, rales, respiratory distress, rhonchi, wheezes - Cardiovascular Cardiovascular exam: Present: RRR, +S1, +S2. Absent: diastolic murmur, gallop, rubs, systolic murmur - GI/Abdominal GI/Abdominal exam: Present: normal bowel sounds, soft, no peritoneal signs. Absent: distended, tenderness - Extremities Exam Extremities exam: Present: warm, radial pulses palpable and symetrical. Absent : calf tenderness, cyanotic, pedal edema - Neurological Exam Neurological exam: Present: alert, CN II-XII intact, normal gait, oriented X3, no focal deficits, strengths equal and symetr throughout. Absent: pronater drift, facial droop, speech deficit - Skin Skin exam: Present: dry, intact, normal color, warm
== END 2016-06-09 13:03 | disposition home or self-care (01) | DRG 872 ==
LOC: 3BNU 13:42 → EMEROO 13:42 → 3BNU 19:06
PROVIDERS: ADMIT Internal Medicine; ATTEND Nurse Practitioner Family